=== PATIENT | female | born 1940 | race Caucasian/White ===

== ENCOUNTER 2017-02-12 08:37 | Emergency (ER) | payer MEDICARE, OTHER ==
[~2017-02-12] VITALS: Ht 162.6 cm; Wt 90.0 kg
[~2017-02-12 08:37] MED LIST: ENAL10TA7 PO; FIBERCON PO; HYDR12.56 PO; LEXA10TA PO; MEMA21CA PO; OMEP20TA PO; PREM.625 PO; RIVA9.5T TD; ROSU5 PO; VESI10TA4 PO; [UNRECOGNIZED DRUG - CODE] PO
[2017-02-12 08:48] VITALS: BP 184/75; PULSE 62; RESP 18; TEMP 98.1; O2SAT 97
[2017-02-12] MEDS ORDERED: SODIUM CHLOR 0.9% 1000 ML INJ 1,000 ML IV SCH (09:21)
[2017-02-12] MEDS ORDERED: ONDANSETRON HCL 4 MG/2 ML VIAL IVP ONE (09:30)
[2017-02-12] MEDS ORDERED: OMEP20TA93 PO (09:30)
[2017-02-12] MEDS ORDERED: SODIUM CHLORIDE 0.9% FLUSH 10 ML FLUSH IV FLUSH PRN (09:30)
[2017-02-12] MEDS ORDERED: KETOROLAC TROMETHAMINE 30 MG/ML (IVP) VIAL IVP ONE (09:30)
--- NOTE | 2017-02-12 09:30 | PD ---
HPI Chief Complaint: Abdominal Pain Time Seen by Provider: 09:15 Travel History International Travel<30 days: No Contact w/Intl Traveler<30days: No Traveled to known affect area: No History of Present Illness HPI The patient is a 76-year-old female who presents to the emergency department with her for abdominal pain. The is a history, states the patient has a history of severe dementia. The patient awakened yesterday morning at 4 AM with left lower quadrant abdominal pain and left inguinal pain. The patient's pain has been constant, there is been no vomiting , diarrhea, constipation, or change in bowel habits. The patient was referred to the emergency department by the primary physician, Dr. Peñaloza, for imaging of the abdomen secondary to her persistent pain. The states the patient has no history of diverticulitis, has had a previous open cholecystectomy. The patient denies any dysuria, frequency, or urgency. The does note the patient has a history of severe arthritis with radicular pain in the shoulders and upper back as well as the lower back. Symptoms are moderate, there are no alleviating or exacerbating factors. The patient is a limited historian secondary to dementia, however, the does provide a good history. PFSH Past Medical History Arthritis: Yes (NECK, BACK AND LEFT HIP) Depression: Yes Cancer: No Cardiovascular Problems: No High Cholesterol: Yes Dementia: Yes Diabetes: No Diminished Hearing: Yes (TINITITS BILATERAL) GERD: Yes Hepatitis: No Hiatal Hernia: No Hypertension: Yes Respiratory: No Thyroid Disease: No Menopausal: Yes Past Surgical History Abdominal Surgery: Yes (CHOLECYSTECTOMY) Eye Surgery: Yes (CATARACT SURGERY BOTH EYES) Pacemaker: No Thoracic Surgery: Yes (LUMPECTOMY L BREAST) Other Surgery: Yes Social History Alcohol Use: No Tobacco Use: No (QUIT IN 1981 SMOKED FOR 30+YRS. 2-PPD) Substance Use: No Allergies-Medications (Allergen,Severity, Reaction): Coded Allergies: atorvastatin (Unverified Adverse Reaction, Severe, MUSCLE ACHES, 02/12/17) simvastatin (Unverified Adverse Reaction, Severe, MUSCLE ACHES, 02/12/17) Reported Meds & Prescriptions Reported Meds & Active Scripts Active Reported Aleve [place] (Naproxen Sodium) 220 Mg Tab 440 Mg PO BID Myrbetriq (Mirabegron) 50 Mg Tab 50 Mg PO DAILY Escitalopram (Escitalopram Oxalate) 10 Mg Tab 10 Mg PO DAILY Trazodone (Trazodone HCl) 50 Mg Tab 50 Mg PO HS Levothyroxine (Levothyroxine Sodium) 50 Mcg Tab 50 Mcg PO DAILY Tramadol (Tramadol HCl) 50 Mg Tab 50 Mg PO Q8H PRN Prempro Blister Pack (Estrogens Conj/Medroxyprogest Acet) 0.625-2.5 Mg Tab 1 Tab PO DAILY Lorazepam 1 Mg Tab 1 Mg PO Q8HR PRN Namenda (Memantine) 10 Mg Tab 10 Mg PO BID Exelon Patch (Rivastigmine) 13.3 mg/24 hr Patch 1 Patch T-DERMAL DAILY Amlodipine (Amlodipine Besylate) 5 Mg Tab 5 Mg PO DAILY Enalapril (Enalapril Maleate) 10 Mg Tab 10 Mg PO BID Omeprazole 20 Mg Tab 20 Mg PO DAILY Review of Systems Except as stated in HPI: all other systems reviewed are Neg General / Constitutional: No: Fever HENT: No: Lightheadedness Cardiovascular: No: Chest Pain or Discomfort Respiratory: No: Shortness of Breath Gastrointestinal: Positive: Abdominal Pain, No: Nausea, Vomiting, Diarrhea, Constipation, Changes in Bowel Habits, Loss of Appetite Genitourinary: No: Urgency, Frequency, Dysuria Physical Exam Narrative GENERAL: Awake, alert, pleasant 76 year-old female who appears her stated age is in no acute respiratory distress. SKIN: Focused skin assessment warm/dry. HEAD: Atraumatic. Normocephalic. EYES: Pupils equal and round. No scleral icterus. No injection or drainage. ENT: No nasal bleeding or discharge. Mucous membranes pink and moist. NECK: Trachea midline. No JVD. CARDIOVASCULAR: Regular rate and rhythm. No murmur appreciated. RESPIRATORY: No accessory muscle use. Clear to auscultation. Breath sounds equal bilaterally. GASTROINTESTINAL: Abdomen soft, tender to palpation left lower quadrant and left inguinal canal. MUSCULOSKELETAL: No obvious deformities. No clubbing. No cyanosis. No edema. NEUROLOGICAL: Awake and alert. 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 Oriented to person, follow simple commands. PSYCHIATRIC: Appropriate mood and affect; insight and judgment normal. Data Data Last Documented VS Vital Signs Date Time Temp Pulse Resp B/P (MAP) Pulse Ox O2 Delivery O2 Flow Rate FiO2 02/12/17 10:15 16 98 Room Air 02/12/17 08:48 98.1 62 Orders Orders Complete Blood Count With Diff (02/12/17 09:21) Comprehensive Metabolic Panel (02/12/17 09:21) Lipase (02/12/17 09:21) Lactic Acid (02/12/17 09:21) Urinalysis - C+S If Indicated (02/12/17 09:21) Ct Abd/Pel W/O Iv Contrast (02/12/17 09:21) Iv Access Insert/Monitor (02/12/17 09:21) Ecg Monitoring (02/12/17 09:21) Oximetry (02/12/17 09:21) Ondansetron Inj (Zofran Inj) (02/12/17 09:30) Sodium Chlor 0.9% 1000 Ml Inj (Ns 1000 M (02/12/17 09:21) Sodium Chloride 0.9% Flush (Ns Flush) (02/12/17 09:30) Ketorolac Inj (Toradol Inj) (02/12/17 09:30) Urine Culture (02/12/17 10:20) Labs Laboratory Tests Test 02/12/17 10:20 02/12/17 10:24 Urine Collection Type CLEAN CATCH Urine Color YELLOW Urine Turbidity CLEAR Urine pH 6.0 Urine Specific [place] 1.024 Urine Protein TRACE mg/dL Urine Glucose (UA) NEG mg/dL Urine Ketones 15 mg/dL Urine Occult Blood NEG Urine Nitrite NEG Urine Bilirubin NEG Urine Leukocyte Esterase NEG Urine RBC 0-3 /hpf Urine WBC 3-5 /hpf Urine Squamous Epithelial Cells > 8 /hpf Urine Bacteria MANY /hpf Microscopic Urinalysis Comment CULTURE INDICATED Urine Collection Time 10:20 White Blood Count 7.4 TH/MM3 Red Blood Count 4.60 MIL/MM3 Hemoglobin 13.3 GM/DL Hematocrit 39.5 % Mean Corpuscular Volume 86.1 FL Mean Corpuscular Hemoglobin 28.8 PG Mean Corpuscular Hemoglobin Concent 33.5 % Red Cell Distribution Width 13.1 % Platelet Count 253 TH/MM3 Mean Platelet Volume 7.6 FL Neutrophils (%) (Auto) 69.9 % Lymphocytes (%) (Auto) 19.5 % Monocytes (%) (Auto) 8.7 % Eosinophils (%) (Auto) 1.3 % Basophils (%) (Auto) 0.6 % Neutrophils # (Auto) 5.3 TH/MM3 Lymphocytes # (Auto) 1.4 TH/MM3 Monocytes # (Auto) 0.6 TH/MM3 Eosinophils # (Auto) 0.1 TH/MM3 Basophils # (Auto) 0.0 TH/MM3 CBC Comment DIFF FINAL Differential Comment Blood Urea Nitrogen 20 MG/DL Creatinine 0.94 MG/DL Random Glucose 110 MG/DL Total Protein 7.3 GM/DL Albumin 3.6 GM/DL Calcium Level 8.9 MG/DL Alkaline Phosphatase 66 U/L Aspartate Amino Transf (AST/SGOT) 17 U/L Alanine Aminotransferase (ALT/SGPT) 30 U/L Total Bilirubin 0.5 MG/DL Sodium Level 138 MEQ/L Potassium Level 3.8 MEQ/L Chloride Level 103 MEQ/L Carbon Dioxide Level 26.8 MEQ/L Anion Gap 8 MEQ/L Estimat Glomerular Filtration Rate 58 ML/MIN Lactic Acid Level 0.8 mmol/L Lipase 158 U/L [facility] Medical Decision Making Medical Screen Exam Complete: Yes Emergency Medical Condition: Yes Medical Record Reviewed: Yes Interpretation(s) Laboratory Tests Test 02/12/17 10:20 02/12/17 10:24 Urine Collection Type CLEAN CATCH Urine Color YELLOW Urine Turbidity CLEAR Urine pH 6.0 Urine Specific [place] 1.024 Urine Protein TRACE mg/dL Urine Glucose (UA) NEG mg/dL Urine Ketones 15 mg/dL Urine Occult Blood NEG Urine Nitrite NEG Urine Bilirubin NEG Urine Leukocyte Esterase NEG Urine RBC 0-3 /hpf Urine WBC 3-5 /hpf Urine Squamous Epithelial Cells > 8 /hpf Urine Bacteria MANY /hpf Microscopic Urinalysis Comment CULTURE INDICATED Urine Collection Time 10:20 White Blood Count 7.4 TH/MM3 Red Blood Count 4.60 MIL/MM3 Hemoglobin 13.3 GM/DL Hematocrit 39.5 % Mean Corpuscular Volume 86.1 FL Mean Corpuscular Hemoglobin 28.8 PG Mean Corpuscular Hemoglobin Concent 33.5 % Red Cell Distribution Width 13.1 % Platelet Count 253 TH/MM3 Mean Platelet Volume 7.6 FL Neutrophils (%) (Auto) 69.9 % Lymphocytes (%) (Auto) 19.5 % Monocytes (%) (Auto) 8.7 % Eosinophils (%) (Auto) 1.3 % Basophils (%) (Auto) 0.6 % Neutrophils # (Auto) 5.3 TH/MM3 Lymphocytes # (Auto) 1.4 TH/MM3 Monocytes # (Auto) 0.6 TH/MM3 Eosinophils # (Auto) 0.1 TH/MM3 Basophils # (Auto) 0.0 TH/MM3 CBC Comment DIFF FINAL Differential Comment Blood Urea Nitrogen 20 MG/DL Creatinine 0.94 MG/DL Random Glucose 110 MG/DL Total Protein 7.3 GM/DL Albumin 3.6 GM/DL Calcium Level 8.9 MG/DL Alkaline Phosphatase 66 U/L Aspartate Amino Transf (AST/SGOT) 17 U/L Alanine Aminotransferase (ALT/SGPT) 30 U/L Total Bilirubin 0.5 MG/DL Sodium Level 138 MEQ/L Potassium Level 3.8 MEQ/L Chloride Level 103 MEQ/L Carbon Dioxide Level 26.8 MEQ/L Anion Gap 8 MEQ/L Estimat Glomerular Filtration Rate 58 ML/MIN Lactic Acid Level 0.8 mmol/L Lipase 158 U/L CT the abdomen and pelvis reveals no calcified renal stones or hydronephrosis. Scattered diverticulosis of the descending and sigmoid colon without inflammatory changes. No focal or acute intra-abdominal/pelvic pathology. Differential Diagnosis Differential diagnosis includes diverticulitis, pyelonephritis, nephrolithiasis , hydronephrosis, UTI, inguinal strain, back pain with radiculopathy, shingles. Narrative Course IV was established, labs are drawn and sent, and the patient was placed on cardiac telemetry monitoring and continuous pulse oximetry monitoring. UA was sent to lab. CT of the abdomen and pelvis was ordered. The patient was administered Toradol 50 mg intravenously, Zofran 4 mg intravenously, and IV fluids. White count is normal. Lactic acid is normal. Ketones of 15 and the UA, otherwise unremarkable. The patient is afebrile. Laboratory evaluation was unremarkable, CT reveals diverticulosis of the descending and sigmoid colon without inflammatory changes, no focal or acute intra-abdominal/pelvic pathology. I believe the patient is stable for outpatient follow-up. The patient's primary physician, Dr. Peñaloza, was paged at 11:21 AM to ensure follow- up. The patient and were notified of the findings. I discussed the patient with Dr. Peñaloza at 11:22 AM who states the patient can follow-up with the office next week if they will call and make an appointment. Patient is stable for outpatient follow-up. Diagnosis Primary Impression: Abdominal pain Qualified Codes: R10.32 - Left lower quadrant pain Additional Impression: Left inguinal pain Patient Instructions: General Instructions Additional Instructions: Please provide the patient and her a copy of the CT results and lab results at discharge. Call Dr. Peñaloza's office for an appointment early next week. Continue home medications as previously directed. Return if symptoms worsen or progress. Disposition: 01 DISCHARGE HOME Condition: Stable Neftaly Saavedra MD Feb 12, 2017 09:30
[2017-02-12 10:05] VITALS: BP 131/72; PULSE 68; RESP 16; O2SAT 97
[2017-02-12 10:15] VITALS: RESP 16; O2SAT 98
[2017-02-12 10:30] LABS: BLOOD, URINE NEG (NEG); GLUCOSE,URINE NEG (NEG); KETONE, URINE 15 mg/dL (NEG); NITRITE,URINE NEG (NEG)
[2017-02-12 10:32] LABS: AUTOMATED NEUTROPHIL # 5.3 TH/MM3 (1.8-7.7); BASOPHIL % 0.6 % (0.0-2.0); EOSINOPHIL # 0.1 TH/MM3 (0-0.4); EOSINOPHIL % 1.3 % (0.0-4.0); HEMATOCRIT 39.5 % (35.0-46.0); HEMO FLAGS DIFF FINAL; LYMPH % 19.5 % (9.0-44.0); LYMPHOCYTE # 1.4 TH/MM3 (1.0-4.8); MEAN CELL VOLUME 86.1 FL (80.0-100.0); MEAN CORPUSCULAR HEMOGLOBIN 28.8 PG (27.0-34.0); MEAN CORPUSCULAR HGB CONC 33.5 % (32.0-36.0); MONO % 8.7 % (0.0-8.0); NEUT % 69.9 % (16.0-70.0); PLATELET COUNT 253 TH/MM3 (150-450); RED CELL DISTRIBUTION WIDTH 13.1 % (11.6-17.2); WHITE BLOOD COUNT 7.4 TH/MM3 (4.0-11.0)
[2017-02-12 10:37] LABS: METHOD OF COLLECTION CLEAN CATCH; RBC, URINE 0-3 /hpf (0-3); SQUAMOUS EPITHELIAL CELL URINE > 8 /hpf (0-5); URINE COLOR YELLOW (YELLW/STRAW)
[2017-02-12 10:38] LABS: BACTERIA, URINE MANY /hpf; COMMENT (UR) CULTURE INDICATED; CULTURE IF INDICATED CULTURE INDICATED
[2017-02-12 10:42] LABS: CHLORIDE 103 MEQ/L (98-107); POTASSIUM 3.8 MEQ/L (3.5-5.1); SODIUM (NA) 138 MEQ/L (136-145)
[2017-02-12 10:46] LABS: ANION GAP 8 MEQ/L (5-15); BICARBONATE 26.8 MEQ/L (21.0-32.0); BLOOD UREA NITROGEN 20 MG/DL (7-18)
[2017-02-12 10:48] LABS: ALT (GPT) 30 U/L (10-53)
[2017-02-12 10:49] LABS: AST (GOT) 17 U/L (15-37); GLOMERULAR FILTRATION RATE 58 ML/MIN (>89)
[2017-02-12 10:50] LABS: TOTAL BILIRUBIN ADULT 0.5 MG/DL (0.2-1.0)
[2017-02-12 10:51] LABS: ALKALINE PHOSPHATASE 66 U/L (45-117)
[2017-02-12 11:10] VITALS: BP 122/80; PULSE 72; RESP 16; O2SAT 98
--- NOTE | 2017-02-12 11:15 | RADRPT ---
EXAM DATE/TIME: 02/12/2017 10:56 [facility] COMPARISON: No previous studies available for comparison. INDICATIONS : Left lower quadrant pain. ORAL CONTRAST: No oral contrast ingested. RADIATION DOSE: 18.56 CTDIvol (mGy) MEDICAL HISTORY : Dementia. Gastroesophageal reflux disease. Hypertension. SURGICAL HISTORY : Cholecystectomy. ENCOUNTER: Initial ACUITY: 1 day PAIN SCALE: 4/10 LOCATION: Left lower quadrant TECHNIQUE: Volumetric scanning of the abdomen and pelvis was performed. Using automated exposure control and ad justment of the mA and/or kV according to patient size, radiation dose was kept as low as reasonably achievable to obtain optimal diagnostic quality images. DICOM format image data is available electro nically for review and comparison. The lack of IV contrast limits the diagnosis for certain organ pat hology. FINDINGS: LOWER LUNGS: The visualized lower lungs are clear. LIVER: Homogeneous density without lesion. There is no dilation of the biliary tree. No calcified gallston es. SPLEEN: Normal size without lesion. PANCREAS: Within normal limits. KIDNEYS: Normal in size and shape. There is no mass, stone, or hydronephrosis. ADRENAL GLANDS: Within normal limits. VASCULAR: There is no aortic aneurysm. Atherosclerotic changes. BOWEL/MESENTERY: The stomach, small bowel, and colon demonstrate no acute abnormality. There is no free intraperitone al air or fluid. There is some scattered diverticulosis of the descending and sigmoid colon without i nflammatory changes. ABDOMINAL WALL: Within normal limits. RETROPERITONEUM: There is no lymphadenopathy. BLADDER: No wall thickening or mass. REPRODUCTIVE: Within normal limits. INGUINAL: There is no lymphadenopathy or hernia. MUSCULOSKELETAL: Within normal limits for patient age. Bony degenerative changes. CONCLUSION: 1. No calcified renal stones or hydronephrosis. 2. Scattered diverticulosis of the descending and sigmoid colon without inflammatory changes. 3. No focal or acute intra-abdominal/pelvic pathology. Gareth Mejia MD on February 12, 2017 at 11:09 Board Certified Radiologist. This report was verified electronically.
[2017-02-12] MEDS ORDERED: ESCI10TA PO (11:16)
[2017-02-12] MEDS ORDERED: LEVO50TA4 PO (11:16)
[2017-02-12] MEDS ORDERED: TRAZ50TA12 PO (11:16)
[2017-02-12] MEDS ORDERED: AMLO5TAB2 PO (11:16)
[2017-02-12] MEDS ORDERED: MIRA50TA PO (11:16)
[2017-02-12] MEDS ORDERED: ENAL10TA PO (11:16)
[2017-02-12] MEDS ORDERED: PREM.625 PO (11:16)
[2017-02-12] MEDS ORDERED: NAME10TA PO (11:16)
[2017-02-12] MEDS ORDERED: LORA1TAB12 PO (11:16)
[2017-02-12] MEDS ORDERED: RIVA13.3 T-DERMAL (11:16)
[2017-02-12] MEDS ORDERED: TRAM50TA PO (11:16)
[2017-02-12] MEDS ORDERED: ALEV220T14 PO (11:16)
[2017-02-12] MEDS ORDERED: NORC5TAB PO (11:27)
[2017-02-12 11:39] VITALS: RESP 16
== END 2017-02-12 12:01 | disposition home or self-care (01) ==
LOC: PHED 08:37
DX: R10.32 Left lower quadrant pain (principal); K57.30 Diverticulosis of large intestine without perforation or abscess without bleeding; R82.71 Bacteriuria; I10 Essential (primary) hypertension; F03.90 Unspecified dementia, unspecified severity, without behavioral disturbance, psychotic disturbance, mood disturbance, and anxiety; Z87.891 Personal history of nicotine dependence
CPT/HCPCS: 74176; 80053; 81001; 83605; 83690; 85025; 87086; 96361; 96374; 96375; 99285; J1885; J2405; J7030

== ENCOUNTER 2017-02-14 10:49 | Emergency (ER) | payer MEDICARE, OTHER ==
[~2017-02-14] VITALS: Ht 162.6 cm; Wt 95.0 kg
[~2017-02-14 10:49] MED LIST changes: +ALEV220T14 PO; +AMLO5TAB2 PO; +ENAL10TA PO; -ENAL10TA7 PO; +ESCI10TA PO; -FIBERCON PO; -HYDR12.56 PO; +LEVO50TA4 PO; -LEXA10TA PO; +LORA1TAB12 PO; -MEMA21CA PO; +MIRA50TA PO; +NAME10TA PO; +NORC5TAB PO; -OMEP20TA PO; +OMEP20TA93 PO; +RIVA13.3 T-DERMAL; -RIVA9.5T TD; -ROSU5 PO; +TRAM50TA PO; +TRAZ50TA12 PO; -VESI10TA4 PO; -[UNRECOGNIZED DRUG - CODE] PO
[2017-02-14 10:58] VITALS: BP 168/80; PULSE 62; RESP 16; TEMP 97.9; O2SAT 97
--- NOTE | 2017-02-14 11:51 | PD ---
HPI Chief Complaint: Musculoskeletal Complaint Time Seen by Provider: 11:13 Travel History International Travel<30 days: No Contact w/Intl Traveler<30days: No Traveled to known affect area: No History of Present Illness HPI 76-year-old female with left hip pain 3 days. Patient has dementia and is accompanied by her who is her hop farmer and historian. He appears very knowledgeable about her of health care. Patient was seen on 02/12/17 for left lower quadrant/inguinal pain. She had a negative workup at that time which included lab work, UA, CT scan of the abdomen pelvis. She was discharged home on hydrocodone which has improved her pain but she is not to run out. She was seen for follow-up by her PCP Dr. Cortez who ordered an x-ray which showed severe osteoarthritis in left hip. She is scheduled for an MRI on Thursday and steroid injection into the left hip. is asking for refill of the pain medication to get him through the weekend. and patient deny fever, chills, abdominal pain, nausea, vomiting, diarrhea. PFSH Past Medical History Arthritis: Yes (NECK, BACK AND LEFT HIP) Depression: Yes Cancer: No Cardiovascular Problems: No High Cholesterol: Yes Dementia: Yes Diabetes: No Diminished Hearing: Yes (TINITITS BILATERAL) GERD: Yes Hepatitis: No Hiatal Hernia: No Hypertension: Yes Respiratory: No Thyroid Disease: No Menopausal: Yes Past Surgical History Abdominal Surgery: Yes (CHOLECYSTECTOMY) Eye Surgery: Yes (CATARACT SURGERY BOTH EYES) Pacemaker: No Thoracic Surgery: Yes (LUMPECTOMY L BREAST) Other Surgery: Yes Social History Alcohol Use: No Tobacco Use: No (QUIT IN 1981 SMOKED FOR 30+YRS. 2-PPD) Substance Use: No Allergies-Medications (Allergen,Severity, Reaction): Coded Allergies: atorvastatin (Unverified Adverse Reaction, Severe, MUSCLE ACHES, 02/14/17) simvastatin (Unverified Adverse Reaction, Severe, MUSCLE ACHES, 02/14/17) Reported Meds & Prescriptions Reported Meds & Active Scripts Active [place] (Hydrocodone-Acetaminophen) 5-325 mg Tab 1 Tab PO Q6H PRN Reported Aleve Arthritis (Naproxen Sodium) 220 Mg Tab 440 Mg PO BID Myrbetriq (Mirabegron) 50 Mg Tab 50 Mg PO DAILY Escitalopram (Escitalopram Oxalate) 10 Mg Tab 10 Mg PO DAILY Trazodone (Trazodone HCl) 50 Mg Tab 50 Mg PO HS Levothyroxine (Levothyroxine Sodium) 50 Mcg Tab 50 Mcg PO DAILY Tramadol (Tramadol HCl) 50 Mg Tab 50 Mg PO Q8H PRN Prempro Blister Pack (Estrogens Conj/Medroxyprogest Acet) 0.625-2.5 Mg Tab 1 Tab PO DAILY Lorazepam 1 Mg Tab 1 Mg PO Q8HR PRN Namenda (Memantine) 10 Mg Tab 10 Mg PO BID Exelon Patch (Rivastigmine) 13.3 mg/24 hr Patch 1 Patch T-DERMAL DAILY Amlodipine (Amlodipine Besylate) 5 Mg Tab 5 Mg PO DAILY Enalapril (Enalapril Maleate) 10 Mg Tab 10 Mg PO BID Omeprazole 20 Mg Tab 20 Mg PO DAILY Review of Systems Except as stated in HPI: all other systems reviewed are Neg General / Constitutional: No: Fever Eyes: No: Visual changes HENT: No: Headaches Cardiovascular: No: Chest Pain or Discomfort Respiratory: No: Shortness of Breath Gastrointestinal: No: Abdominal Pain Genitourinary: No: Dysuria Physical Exam Narrative GENERAL: Well-nourished, well-developed patient well appearing elderly female. SKIN: Focused skin assessment warm/dry. HEAD: Normocephalic. EYES: No scleral icterus. No injection or drainage. NECK: Supple, trachea midline. No JVD or lymphadenopathy. CARDIOVASCULAR: Regular rate and rhythm without murmurs, gallops, or rubs. RESPIRATORY: Breath sounds equal bilaterally. No accessory muscle use. GASTROINTESTINAL: Abdomen soft, non-tender, nondistended. MUSCULOSKELETAL: No cyanosis, or edema. TTP left lateral hip. Pelvis stable. Patient has pain with full flexion and external rotation of the hip. 2+ distal pulses. No leg swelling. BACK: Nontender without obvious deformity. No CVA tenderness. Data Data Last Documented VS Vital Signs Date Time Temp Pulse Resp B/P (MAP) Pulse Ox O2 Delivery O2 Flow Rate FiO2 02/14/17 10:58 97.9 62 16 168/80 (109) 97 Orders Orders Ketorolac Inj (Toradol Inj) (02/14/17 12:00) MDM Medical Decision Making Medical Screen Exam Complete: Yes Emergency Medical Condition: Yes Differential Diagnosis arthralgia, hip fx, hip strain Narrative Course 76-year-old female with left hip pain 3 days. No injury. recent xray shows severe arthritis. Patient has dementia and is accompanied by her who is her hop farmer and historian. He appears very knowledgeable about her of health care. Patient was seen on 02/12/17 for left lower quadrant/inguinal pain. She had a negative workup at that time which included lab work, UA, CT scan of the abdomen pelvis. She was discharged home on hydrocodone which improved her pain, but she is about to run out of pain medication . She was seen for follow-up by her PCP Dr. Cortez who ordered an x-ray which showed severe osteoarthritis in left hip. She is scheduled for an MRI on Thursday and steroid injection into the left hip. is asking for refill of the pain medication to get him through the weekend. and patient deny fever, chills, abdominal pain, nausea, vomiting, diarrhea. Diagnosis Primary Impression: Hip pain, left Referrals: Primary Care Physician Additional Instructions: take the medication as prescribed. keep your follow up appointment on thursday return if you develop new or worsening symptoms Scripts Hydrocodone-Acetaminophen ([place]) 5-325 mg Tab 1 TAB PO Q6H Y for PAIN, #10 TAB 0 Refills Prov: Ambrose Goss MD 02/14/17 Disposition: 01 DISCHARGE HOME Condition: Stable Tequila Govea Feb 14, 2017 11:51
[2017-02-14] MEDS ORDERED: NORC5TAB PO (11:53)
[2017-02-14] MEDS ORDERED: KETOROLAC TROMETHAMINE 60 MG/2 ML (IM) VIAL IM ONE (12:00)
== END 2017-02-14 12:13 | disposition home or self-care (01) ==
LOC: PHED 10:49 → PHEFT 12:13
DX: M25.552 Pain in left hip (principal); F03.90 Unspecified dementia, unspecified severity, without behavioral disturbance, psychotic disturbance, mood disturbance, and anxiety; I10 Essential (primary) hypertension; Z87.891 Personal history of nicotine dependence
CPT/HCPCS: 96372; 99284; J1885

== ENCOUNTER 2017-03-03 12:35 | Day surgery (SDC) | payer MEDICARE, OTHER ==
[2017-03-03] MEDS ORDERED: IOHEXOL 300 MG/ML 50 ML BTL (for RAD DIAG) OTHER ONE (12:36)
[2017-03-03 12:53] VITALS: BP 177/103; PULSE 78; RESP 20; TEMP 98; O2SAT 95
[2017-03-03 12:54] VITALS: BP 177/103; PULSE 78; RESP 18; TEMP 98; O2SAT 95
[2017-03-03] MEDS ORDERED: BUTR10DI T-DERMAL (13:02)
[2017-03-03] MEDS ORDERED: ROSU5 PO (13:03)
[2017-03-03] MEDS ORDERED: TRIAMCINOLONE ACETONIDE 40 MG/ML VIAL ONE (13:44)
[2017-03-03 14:10] VITALS: BP 140/74; PULSE 64; RESP 20; TEMP 97.4; O2SAT 97
--- NOTE | 2017-03-03 14:12 | PD.RAD ---
Post Procedure Progress Note Pre Procedure Diagnosis: (1) Back pain Post Procedure Diagnosis: (1) Back pain Procedure Date: Mar 03, 2017 Supervising Radiologist: Guillermo Goncalves Proceduralist/Assist: Nelly Burgos RT(R)(), RT Eliazar(R) Anesthesia: Local Plan of Activity Patient to Unit: ROPU Patient Condition: Good See PACS Report for procedural detail/treatment Spinal Procedure Facet Injection L3-L4 (bilateral), L4-L5 (bilateral ) Guillermo Goncalves MD Mar 03, 2017 14:12
[2017-03-03 14:20] VITALS: BP 140/74; PULSE 64; RESP 20; TEMP 97.4; O2SAT 97
--- NOTE | 2017-03-03 15:32 | RADRPT ---
EXAM DATE/TIME: 03/03/2017 13:42 [facility] COMPARISON: No previous studies available for comparison. INDICATIONS : Patient with low back pain in need of lumbar facet steroid injection MEDICAL HISTORY : HTN, HLD, Dementia, GERD, Colonic polyps, Arthritis SURGICAL HISTORY : Left breast biopsy and lumpectomy, Cholecystectomy ENCOUNTER: Initial ACUITY: 1 year PAIN SCORE: 5/10 LOCATION: Mid-low back FLUORO TIME: 7.6 minutes IMAGE SERIES: 0 CONTRAST: 1 cc Omnipaque (iohexol) 300 ACCESS LEVEL: Right L3-L4 MEDICATION(S): 1.) 0.5 cc triamcinolone (Kenalog) IA 2.) 0.5 cc Lidocaine IA RESPONSE: Pre procedure pain level was 5/10. Post procedure pain level was 0/10. PROCEDURE : Fluoroscopically guided facet injection. The risks, benefits and alternatives to the procedure were explained and verbal and written consent w as obtained. The site was prepped in sterile fashion. Full sterile technique was used, including ca p, mask, sterile gloves and gown and a large sterile sheet. Hand hygiene and 2% chlorhexidine and/or betadine/alcohol prep was utilized per protocol for cutaneous antisepsis. The skin and subcutaneous tissues were infiltrated with local anesthetic solution. With fluoroscopic guidance the targeted facet was localized and positive contrast was injected to con firm intra-articular position. The prescribed medications were injected into the facet joint. The pat ient's pre and post procedure pain levels were recorded. CONCLUSION: Uncomplicated fluoroscopically guided facet injection as above. Guillermo Goncalves MD on March 03, 2017 at 15:30 Board Certified Radiologist. This report was verified electronically.
--- NOTE | 2017-03-03 15:33 | RADRPT ---
EXAM DATE/TIME: 03/03/2017 13:42 [facility] COMPARISON: No previous studies available for comparison. INDICATIONS : Patient with low back pain in need of lumbar facet steroid injection MEDICAL HISTORY : HTN, HLD, Dementia, GERD, Colonic polyps, Arthritis SURGICAL HISTORY : Left breast biopsy and lumpectomy, Cholecystectomy ENCOUNTER: Initial ACUITY: 1 year PAIN SCORE: 5/10 LOCATION: Mid-low back FLUORO TIME: 7.6 minutes IMAGE SERIES: 0 CONTRAST: 1 cc Omnipaque (iohexol) 300 ACCESS LEVEL: Right L4-L5 MEDICATION(S): 1.) 0.5 cc triamcinolone (Kenalog) IA 2.) 0.5 cc Lidocaine IA RESPONSE: Pre procedure pain level was 5/10. Post procedure pain level was 0/10. PROCEDURE : Fluoroscopically guided facet injection. The risks, benefits and alternatives to the procedure were explained and verbal and written consent w as obtained. The site was prepped in sterile fashion. Full sterile technique was used, including ca p, mask, sterile gloves and gown and a large sterile sheet. Hand hygiene and 2% chlorhexidine and/or betadine/alcohol prep was utilized per protocol for cutaneous antisepsis. The skin and subcutaneous tissues were infiltrated with local anesthetic solution. With fluoroscopic guidance the targeted facet was localized and positive contrast was injected to con firm intra-articular position. The prescribed medications were injected into the facet joint. The pat ient's pre and post procedure pain levels were recorded. CONCLUSION: Uncomplicated fluoroscopically guided facet injection as above. Guillermo Goncalves MD on March 03, 2017 at 15:31 Board Certified Radiologist. This report was verified electronically.
== END 2017-03-03 14:40 | disposition home or self-care (01) ==
LOC: HROP 12:35 → HRIP 12:39 → HROP 14:40
PROVIDERS: ATTEND Family Medicine
DX: M47.27 Other spondylosis with radiculopathy, lumbosacral region (principal); M54.5 Low back pain; I10 Essential (primary) hypertension; E78.5 Hyperlipidemia, unspecified; F03.90 Unspecified dementia, unspecified severity, without behavioral disturbance, psychotic disturbance, mood disturbance, and anxiety; K21.9 Gastro-esophageal reflux disease without esophagitis
CPT/HCPCS: 64493; 64494; J3301; Q9967